=== PATIENT | female | born 1955 | race Caucasian/White ===

== ENCOUNTER 2022-09-14 11:32 | Outpatient (CLI) | payer MEDICARE, MEDICAID, SELFPAY ==
[2022-09-14 16:59] LABS: Alanine Aminotransferase 23 U/L (6-35); Albumin Level 4.2 g/dL (3.5-5.1); Alkaline Phosphatase 60 U/L (38-126); Anion Gap 9 mmol/L (8-16); Aspartate Amino Transferase 65 U/L (14-36); Bilirubin,Total 0.7 mg/dL (0.2-1.3); Blood Urea Nitrogen 11 mg/dL (7-17); Calcium 8.6 mg/dL (8.4-10.2); Carbon Dioxide 29 mmol/L (22-30); Chloride 92 mmol/L (98-107); Cholesterol 130 mg/dL (0-200); Estimated Glomerular Filt Rate > 60; Glucose 271 mg/dL (65-110); HDL Direct 27 mg/dL; Potassium 3.9 mmol/L (3.4-5.0); Sodium 130 mmol/L (137-145); Triglycerides 221 mg/dL (<150)
[2022-09-14 17:10] LABS: LDL Cholesterol Direct 69 mg/dL
[2022-09-14 17:30] LABS: Thyroid Stimulating Hormone 0.589 uIU/mL (0.465-4.680)
[2022-09-14 19:03] LABS: Creatinine Urine 95.6 mg/dL
[2022-09-14 19:22] LABS: Microalbumin Urine Random 24.9 mg/L (0-16.7)
[2022-09-14 20:22] LABS: Free T4 Free Thyroxine 1.12 ng/mL (0.78-2.19); Vitamin D 25 Hydroxy 25.8 ng/mL
[2022-09-16 13:50] LABS: C-Peptide 3.02 ng/mL (0.80-3.85)
== END 2022-09-14 11:33 | disposition home or self-care (01) ==
PROVIDERS: PCP Physician Assistant; Visit Provider Internal Medicine
DX: E11.9 Type 2 diabetes mellitus without complications (principal); M81.0 Age-related osteoporosis without current pathological fracture
CPT/HCPCS: 36415; 80053; 80061; 82043; 82306; 84439; 84443; 84681

== ENCOUNTER 2022-09-22 11:02 | Outpatient (CLI) | payer MEDICARE, MEDICAID, SELFPAY ==
[2022-09-22 13:43] LABS: Sodium Urine Random 39 meq/L
[2022-09-22 13:47] LABS: Sodium 129 mmol/L (137-145)
[2022-09-24 21:39] LABS: Osmolality, Urine 331 mOsm/kg (50-1200)
== END 2022-09-22 11:03 | disposition home or self-care (01) ==
LOC: ANHWCLAB 11:04
PROVIDERS: PCP Physician Assistant; Visit Provider Internal Medicine
DX: E11.9 Type 2 diabetes mellitus without complications (principal); E87.1 Hypo-osmolality and hyponatremia
CPT/HCPCS: 36415; 83935; 84295; 84300

== ENCOUNTER 2022-10-01 10:28 | Outpatient (RCR) | payer MEDICARE, MEDICAID, SELFPAY | END 2022-12-21 12:25 | disposition home or self-care (01) | LOC: ANHDMC 10:28 | PROVIDERS: PCP Physician Assistant; Visit Provider Internal Medicine | DX: E11.9 Type 2 diabetes mellitus without complications (principal); Z71.89 Other specified counseling | CPT/HCPCS: G0108 ==

== ENCOUNTER 2023-02-24 13:39 | Outpatient (CLI) | payer MEDICARE, MEDICAID, SELFPAY ==
[2023-02-24 16:53] LABS: Alanine Aminotransferase 24 U/L (6-35); Albumin Level 4.1 g/dL (3.5-5.1); Alkaline Phosphatase 61 U/L (38-126); Anion Gap 7 mmol/L (8-16); Aspartate Amino Transferase 46 U/L (14-36); Bilirubin,Total 0.4 mg/dL (0.2-1.3); Blood Urea Nitrogen 11 mg/dL (7-17); Calcium 8.6 mg/dL (8.4-10.2); Carbon Dioxide 30 mmol/L (22-30); Chloride 99 mmol/L (98-107); Estimated Glomerular Filt Rate > 60; Glucose 120 mg/dL (65-110); Potassium 3.7 mmol/L (3.4-5.0); Sodium 136 mmol/L (137-145)
[2023-02-24 17:34] LABS: MALB Creatinine Ratio < 13.0 mg/g (0-30); Microalbumin Urine Random < 6.0 mg/L (0-16.7)
== END 2023-02-24 13:40 | disposition home or self-care (01) ==
LOC: ANHWCLAB 13:40
PROVIDERS: PCP Physician Assistant; Visit Provider Internal Medicine
DX: E11.9 Type 2 diabetes mellitus without complications (principal)
CPT/HCPCS: 36415; 80053; 82043; G0109

== ENCOUNTER 2023-02-24 14:30 | Outpatient (RCR) | payer MEDICARE, MEDICAID, SELFPAY | END 2023-05-10 10:15 | disposition home or self-care (01) | LOC: ANHDMC 14:30 | PROVIDERS: PCP Nurse Practitioner Family; Visit Provider Internal Medicine | DX: E11.9 Type 2 diabetes mellitus without complications (principal); Z71.89 Other specified counseling | CPT/HCPCS: G0109 ==